=== PATIENT | female | born 1975 | race Caucasian/White ===

== ENCOUNTER 2023-12-13 06:17 | Emergency (ER) | payer BC, MEDICAID ==
[~2023-12-13] VITALS: Ht 147.3 cm; Wt 50.0 kg
[~2023-12-13 06:17] MED LIST: BUSP15TA52; CITA-73; CLON-1004; LAM100T; PREN-129 OR; VENL75CA3
[2023-12-13 06:52] LABS: Urine Bacteria None Seen /hpf (None Seen)
[2023-12-13 07:06] LABS: Urine Blood Negative /uL (Negative); Urine Clarity Clear (Clear); Urine Protein, UAD Negative (Negative); Urine Specific Gravity 1.005 (1.001-1.035); Urine Urobilinogen Normal (Negative); Urine WBC <1 /hpf (0 - 5); Urine pH 5.5 (5.0-9.0)
[2023-12-13 07:08] LABS: Urine Color Straw (Yellow)
[2023-12-13 07:15] LABS: Amphetamine Screen, Urine Neg (NEGATIVE)
[2023-12-13 07:16] LABS: Barbiturate Scree,Urine Neg (NEGATIVE); Benzodiazephine Screen, Urine Neg (NEGATIVE); Cannabinoid Screen, Urine Neg (NEGATIVE); Cocaine Screen, Urine Neg (NEGATIVE); Opiate Scree,Urine Neg (NEGATIVE); Phencyclidine Screen, Urine Neg (NEGATIVE)
[2023-12-13 07:17] VITALS: BP 111/68; PULSE 74; RESP 16; TEMP 97.9; O2SAT 97
[2023-12-13] MEDS ORDERED: DOXY-286 PO (08:14)
== END 2023-12-13 09:40 | disposition home or self-care (01) ==
LOC: ER 06:17
DX: R30.0 Dysuria (principal); K08.89 Other specified disorders of teeth and supporting structures; I25.2 Old myocardial infarction; Z88.2 Allergy status to sulfonamides; Z88.8 Allergy status to other drugs, medicaments and biological substances; Z79.899 Other long term (current) drug therapy; Z98.890 Other specified postprocedural states
CPT/HCPCS: 80307; 81001